=== PATIENT | male | born 1965 | race Caucasian/White ===

== ENCOUNTER 2021-07-28 10:51 | Inpatient (IN) | payer BC ==
[2021-07-28] MEDS ORDERED: ALBUTEROL HFA INHALER INHALATION STA (11:16)
[2021-07-28] MEDS ORDERED: ALBUTEROL HFA INHALER INHALATION PRN ×2 (11:16→13:50)
[2021-07-28] MEDS ORDERED: methylPREDNISolone SOD SUCCI 125 MG/2 ML VIAL IV STA (11:18)
--- NOTE | 2021-07-28 11:22 | ED ---
General Adult HPI - General Chief complaint: Shortness of Breath Stated complaint: JERRY Time Seen by Provider: 07/28/21 11:10 Source: patient, RN notes reviewed, old records reviewed Mode of arrival: ambulatory Limitations: no limitations - History of Present Illness Initial comments: Well-appearing 56-year-old male, alert and oriented 4, presents to the emergency room with complaints of shortness of breath worsening over the past 4- 5 days. He denies any fevers. He has not been vaccinated against coronavirus. He has not had any sick contacts. He states he does smoke about 4 cigarettes a day. History of COPD. He does use his Yemi daily and a rescue inhaler as needed. He used his rescue inhaler 4 times this morning with no relief. -: days(s) (5) Location: chest Severity scale (1-10): 0 Associated Symptoms: shortness of breath Treatments Prior to Arrival: other (albuterol) - Related Data Home Medications Medication Instructions Recorded Confirmed Albuterol Inhaler [Ventolin Hfa 2 puff INHALATION RT-Q4H PRN 07/28/21 07/28/21 Inhaler] Ascorbic Acid [Vitamin C] 500 mg PO DAILY 07/28/21 07/28/21 Cholecalciferol [Vitamin D3 (25 25 mcg PO DAILY 07/28/21 07/28/21 Mcg = 1000 Iu)] Umeclidinium Brm/Vilanterol Tr 1 puff INHALATION RT-DAILY 07/28/21 07/28/21 [Anoro Ellipta 62.5-25 Mcg INH] Zinc 50 mg PO DAILY 07/28/21 07/28/21 Allergies Allergy/AdvReac Type Severity Reaction Status Date / Time No Known Allergies Allergy Verified 07/28/21 11:51 Review of Systems ROS Statement: Those systems with pertinent positive or pertinent negative responses have been documented in the HPI. ROS Other: All systems not noted in ROS Statement are negative. Past Medical History Past Medical History: COPD Additional Past Medical History / Comment(s): emphysema History of Any Multi-Drug Resistant Organisms: None Reported Past Surgical History: No Surgical Hx Reported Past Psychological History: No Psychological Hx Reported Smoking Status: Current every day smoker Past Alcohol Use History: None Reported Past Drug Use History: None Reported General Exam Limitations: no limitations General appearance: alert, in distress (Dyspneic) Head exam: Present: atraumatic, normocephalic, normal inspection Eye exam: Present: normal appearance, EOMI. Absent: scleral icterus ENT exam: Present: normal exam, normal oropharynx, mucous membranes moist Neck exam: Present: normal inspection, full ROM. Absent: tenderness, meningismus, lymphadenopathy, thyromegaly Respiratory exam: Present: wheezes, accessory muscle use, decreased breath sounds (Bilaterally; decreased left side). Absent: rhonchi, stridor, chest wall tenderness Cardiovascular Exam: Present: tachycardia GI/Abdominal exam: Present: soft. Absent: distended, tenderness, guarding, rebound, rigid Extremities exam: Present: normal inspection, full ROM, normal capillary refill. Absent: tenderness, pedal edema, joint swelling, calf tenderness Back exam: Present: normal inspection. Absent: tenderness, CVA tenderness (R), CVA tenderness (L), rash noted Neurological exam: Present: alert, oriented X3 Psychiatric exam: Present: normal affect, normal mood Skin exam: Present: warm, dry, intact, normal color. Absent: rash, cyanosis, diaphoretic, petechiae, pallor Course Vital Signs 07/28/21 07/28/21 07/28/21 10:57 11:21 13:09 Temperature 99 F Pulse Rate 103 H 80 Respiratory 28 H 22 20 Rate Blood Pressure 173/106 O2 Sat by Pulse 92 L Oximetry 07/28/21 07/28/21 07/28/21 13:30 15:26 15:44 Temperature Pulse Rate 91 80 102 H Respiratory 20 20 Rate Blood Pressure 128/97 165/96 O2 Sat by Pulse 94 L 91 L Oximetry 07/28/21 15:58 Temperature Pulse Rate 92 Respiratory Rate Blood Pressure O2 Sat by Pulse Oximetry - Reevaluation(s) Reevaluation #1: 07/28/21 13:16 Patient continues to be dyspneic using sensory muscles to breathe. Covid test is negative. DuoNeb treatment was ordered. Awaiting CT report. Time: 13:16 Reevaluation #2: 07/28/21 16:23 Patient continues to have accessory muscle use and inspiratory and expiratory wheezes. Additional DuoNeb treatment ordered. Patient is admitted to the hospital. Time: 16:23 EKG Findings - EKG Results: EKG: sinus rhythm (Ventricular rate 96, ID interval 0.152, QRS 0.94, QTC 0.434; incomplete RBBB; no old EKG) Medical Decision Making - Medical Decision Making Pleasant 56-year-old male presents with complaints of shortness of breath worsening over the past 4-5 days. He denies any fevers. History of COPD. He does use his Yemi daily and a rescue inhaler as needed. He used his rescue inhaler 4 times this morning with no relief. White blood cell count 12.8 with a left shift. Chest x-ray is negative for any acute cardiopulmonary process. Troponin is negative. EKG shows normal sinus rhythm with RBBB. CT imaging of the chest shows no evidence of acute pulmonary embolism. There is moderate emphysematous change without pulmonary consolidation or groundglass opacities. Patient was started on antibiotics for COPD exacerbation. Upon reassessment he continues to use accessory muscles with inspiratory and expiratory wheezes. Oxygen saturation 90 with 94% on room air. Case discussed with Dr. Segundo. Patient will be admitted - Lab Data Result diagrams: 07/28/21 11:46 07/28/21 11:46 Lab Results 07/28/21 07/28/21 07/28/21 Range/Units 11:46 11:46 11:46 WBC 12.8 H (3.8-10.6) k/uL RBC 5.03 (4.30-5.90) m/uL Hgb 15.7 (13.0-17.5) gm/dL Hct 47.8 (39.0-53.0) % MCV 94.9 (80.0-100.0) fL MCH 31.1 (25.0-35.0) pg MCHC 32.8 (31.0-37.0) g/dL RDW 13.3 (11.5-15.5) % Plt Count 305 (150-450) k/uL MPV 7.5 Neutrophils % 81 % Lymphocytes % 10 % Monocytes % 5 % Eosinophils % 2 % Basophils % 0 % Neutrophils # 10.4 H (1.3-7.7) k/uL Lymphocytes # 1.2 (1.0-4.8) k/uL Monocytes # 0.7 (0-1.0) k/uL Eosinophils # 0.3 (0-0.7) k/uL Basophils # 0.0 (0-0.2) k/uL PT 9.6 (9.0-12.0) sec INR 0.9 (<1.2) APTT 24.0 (22.0-30.0) sec D-Dimer <0.17 (<0.60) mg/L FEU Sample Site ABG pH (7.35-7.45) ABG pCO2 (35-45) mmHg ABG pO2 (83-108) mmHg ABG HCO3 (21-25) mmol/L ABG Total CO2 (19-24) mmol/L ABG O2 Saturation (94-97) % ABG Base Excess mmol/L Richard Test FiO2 % Sodium 138 (137-145) mmol/L Potassium 4.4 (3.5-5.1) mmol/L Chloride 103 (98-107) mmol/L Carbon Dioxide 28 (22-30) mmol/L Anion Gap 7 mmol/L BUN 17 (9-20) mg/dL Creatinine 0.80 (0.66-1.25) mg/dL Est GFR (CKD-EPI)AfAm >90 (>60 ml/min/1.73 sqM) Est GFR (CKD-EPI)NonAf >90 (>60 ml/min/1.73 sqM) Glucose 126 H (74-99) mg/dL Plasma Lactic Acid Keith (0.7-2.0) mmol/L Calcium 9.2 (8.4-10.2) mg/dL Magnesium 2.1 (1.6-2.3) mg/dL Total Bilirubin 0.4 (0.2-1.3) mg/dL AST 25 (17-59) U/L ALT 20 (4-49) U/L Alkaline Phosphatase 72 (38-126) U/L Lactate Dehydrogenase 403 (313-618) U/L Troponin I (0.000-0.034) ng/mL C-Reactive Protein 0.5 (<1.0) mg/dL Total Protein 7.4 (6.3-8.2) g/dL Albumin 4.6 (3.5-5.0) g/dL Coronavirus (PCR) (Not Detectd) 07/28/21 07/28/21 07/28/21 Range/Units 11:46 11:46 11:46 WBC (3.8-10.6) k/uL RBC (4.30-5.90) m/uL Hgb (13.0-17.5) gm/dL Hct (39.0-53.0) % MCV (80.0-100.0) fL MCH (25.0-35.0) pg MCHC (31.0-37.0) g/dL RDW (11.5-15.5) % Plt Count (150-450) k/uL MPV Neutrophils % % Lymphocytes % % Monocytes % % Eosinophils % % Basophils % % Neutrophils # (1.3-7.7) k/uL Lymphocytes # (1.0-4.8) k/uL Monocytes # (0-1.0) k/uL Eosinophils # (0-0.7) k/uL Basophils # (0-0.2) k/uL PT (9.0-12.0) sec INR (<1.2) APTT (22.0-30.0) sec D-Dimer (<0.60) mg/L FEU Sample Site ABG pH (7.35-7.45) ABG pCO2 (35-45) mmHg ABG pO2 (83-108) mmHg ABG HCO3 (21-25) mmol/L ABG Total CO2 (19-24) mmol/L ABG O2 Saturation (94-97) % ABG Base Excess mmol/L Richard Test FiO2 % Sodium (137-145) mmol/L Potassium (3.5-5.1) mmol/L Chloride (98-107) mmol/L Carbon Dioxide (22-30) mmol/L Anion Gap mmol/L BUN (9-20) mg/dL Creatinine (0.66-1.25) mg/dL Est GFR (CKD-EPI)AfAm (>60 ml/min/1.73 sqM) Est GFR (CKD-EPI)NonAf (>60 ml/min/1.73 sqM) Glucose (74-99) mg/dL Plasma Lactic Acid Keith 0.9 (0.7-2.0) mmol/L Calcium (8.4-10.2) mg/dL Magnesium (1.6-2.3) mg/dL Total Bilirubin (0.2-1.3) mg/dL AST (17-59) U/L ALT (4-49) U/L Alkaline Phosphatase (38-126) U/L Lactate Dehydrogenase (313-618) U/L Troponin I <0.012 (0.000-0.034) ng/mL C-Reactive Protein (<1.0) mg/dL Total Protein (6.3-8.2) g/dL Albumin (3.5-5.0) g/dL Coronavirus (PCR) Not Detected (Not Detectd) 07/28/21 Range/Units 14:19 WBC (3.8-10.6) k/uL RBC (4.30-5.90) m/uL Hgb (13.0-17.5) gm/dL Hct (39.0-53.0) % MCV (80.0-100.0) fL MCH (25.0-35.0) pg MCHC (31.0-37.0) g/dL RDW (11.5-15.5) % Plt Count (150-450) k/uL MPV Neutrophils % % Lymphocytes % % Monocytes % % Eosinophils % % Basophils % % Neutrophils # (1.3-7.7) k/uL Lymphocytes # (1.0-4.8) k/uL Monocytes # (0-1.0) k/uL Eosinophils # (0-0.7) k/uL Basophils # (0-0.2) k/uL PT (9.0-12.0) sec INR (<1.2) APTT (22.0-30.0) sec D-Dimer (<0.60) mg/L FEU Sample Site r rad ABG pH 7.36 (7.35-7.45) ABG pCO2 51 H (35-45) mmHg ABG pO2 58 L* (83-108) mmHg ABG HCO3 29 H (21-25) mmol/L ABG Total CO2 31 H (19-24) mmol/L ABG O2 Saturation 90.5 L (94-97) % ABG Base Excess 3.7 mmol/L Richard Test Yes FiO2 21 % Sodium (137-145) mmol/L Potassium (3.5-5.1) mmol/L Chloride (98-107) mmol/L Carbon Dioxide (22-30) mmol/L Anion Gap mmol/L BUN (9-20) mg/dL Creatinine (0.66-1.25) mg/dL Est GFR (CKD-EPI)AfAm (>60 ml/min/1.73 sqM) Est GFR (CKD-EPI)NonAf (>60 ml/min/1.73 sqM) Glucose (74-99) mg/dL Plasma Lactic Acid Keith (0.7-2.0) mmol/L Calcium (8.4-10.2) mg/dL Magnesium (1.6-2.3) mg/dL Total Bilirubin (0.2-1.3) mg/dL AST (17-59) U/L ALT (4-49) U/L Alkaline Phosphatase (38-126) U/L Lactate Dehydrogenase (313-618) U/L Troponin I (0.000-0.034) ng/mL C-Reactive Protein (<1.0) mg/dL Total Protein (6.3-8.2) g/dL Albumin (3.5-5.0) g/dL Coronavirus (PCR) (Not Detectd) Critical Care Time Critical Care Time: Yes Total Critical Care Time: 34 (Patient given multiple albuterol treatments continues to have respiratory distress with accessory muscle use) Disposition Clinical Impression: COPD exacerbation Disposition: ADMITTED IP TO THIS HOSP Decision Date: 07/28/21 Decision Time: 13:47
[2021-07-28 11:52] LABS: Basophils % (A) 0 %; Eosinophils # (A) 0.3 k/uL (0-0.7); Eosinophils % (A) 2 %; HCT 47.8 % (39.0-53.0); HGB 15.7 gm/dL (13.0-17.5); Lymphocytes # (A) 1.2 k/uL (1.0-4.8); Lymphocytes % (A) 10 %; MCH 31.1 pg (25.0-35.0); MCHC 32.8 g/dL (31.0-37.0); MCV 94.9 fL (80.0-100.0); Mean Platelet Volume 7.5; Monocytes # (A) 0.7 k/uL (0-1.0); Monocytes % (A) 5 %; Neutrophils # (A) 10.4 k/uL (1.3-7.7); Neutrophils % (A) 81 %; Platelet Count 305 k/uL (150-450); RBC 5.03 m/uL (4.30-5.90); RDW 13.3 % (11.5-15.5); WBC 12.8 k/uL (3.8-10.6)
--- NOTE | 2021-07-28 11:59 | XR ---
EXAMINATION TYPE: XR chest 1V portable DATE OF EXAM: 07/28/2021 COMPARISON: Chest x-ray April 10, 2020 HISTORY: Difficulty in breathing. TECHNIQUE: Single frontal view of the chest is obtained. FINDINGS: There are chronic parenchymal changes bilaterally redemonstrated without suspicious new fo rakel air space opacity, pleural effusion, or pneumothorax seen. The cardiac silhouette size remains w ithin normal limits. Spurring in the lower thoracic spine is again seen. IMPRESSION: No acute process. No significant change from prior.
[2021-07-28 12:08] LABS: ALT 20 U/L (4-49); AST 25 U/L (17-59); African American GFR (CKD) >90 (>60 ml/min/1.73 sqM); Albumin 4.6 g/dL (3.5-5.0); Alkaline Phosphatase 72 U/L (38-126); Anion Gap 7 mmol/L; Blood Urea Nitrogen 17 mg/dL (9-20); C Reactive Protein 0.5 mg/dL (<1.0); Calcium 9.2 mg/dL (8.4-10.2); Carbon Dioxide 28 mmol/L (22-30); Chloride 103 mmol/L (98-107); Glucose 126 mg/dL (74-99); LDH 403 U/L (313-618); Magnesium 2.1 mg/dL (1.6-2.3); Non-African American GFR(CKD) >90 (>60 ml/min/1.73 sqM); Potassium 4.4 mmol/L (3.5-5.1); Sodium 138 mmol/L (137-145); Total Bilirubin 0.4 mg/dL (0.2-1.3); Total Protein 7.4 g/dL (6.3-8.2)
[2021-07-28 12:14] LABS: INR 0.9 (<1.2); Prothrombin Time 9.6 sec (9.0-12.0)
[2021-07-28] MEDS ORDERED: AZITHROMYCIN 500 MG in SODIUM CHLORIDE 0.9% 250 ML IVPB STA (12:31)
[2021-07-28] MEDS ORDERED: IPRATROPIUM-ALBUTEROL 3 ML NEB INHALATION STA ×3 (12:42→16:22)
--- NOTE | 2021-07-28 13:17 | CT ---
EXAMINATION TYPE: CT angio chest DATE OF EXAM: 07/28/2021 COMPARISON: Chest x-ray earlier today HISTORY: dyspnea, covid CT DLP: 284.4 mGycm. Automated Exposure Control for Dose Reduction was Utilized. CONTRAST: CTA scan of the thorax is performed with IV Contrast, patient injected with 100 mL of Isovue 370, pul monary embolism protocol. MIP Images are created on CT scanner and reviewed. FINDINGS: LUNGS: Moderate underlying emphysematous changes greatest in the upper lungs is redemonstrated. No s uspicious focal consolidation or groundglass opacities. There is no pleural effusion or pneumothorax seen. The tracheobronchial tree is patent. No suspicious MEDIASTINUM: There is satisfactory enhancement of the pulmonary artery and its branches, there is no CT evidence for pulmonary embolism. Satisfactory enhancement of the aorta without aneurysm or dissec tion. There are no greater than 1 cm hilar or mediastinal lymph nodes. No cardiomegaly or pericardi al effusion is seen. OTHER: [id number] multilevel spurring in the mid to lower thoracic spine is present. IMPRESSION: No CT evidence for acute pulmonary embolism. Moderate emphysematous change without acute pulmonary consolidation or groundglass opacities.
[2021-07-28] MEDS ORDERED: ACETAMINOPHEN TAB 325 MG TAB PO PRN (13:47)
[2021-07-28] MEDS ORDERED: IBUPROFEN 400 MG TAB PO PRN (13:47)
[2021-07-28] MEDS ORDERED: NALOXONE 0.4 MG/ML 1 ML VIAL IV PRN (13:47)
[2021-07-28 14:22] LABS: ABG Base Excess 3.7 mmol/L; ABG HCO3 29 mmol/L (21-25); ABG Oxygen Saturation 90.5 % (94-97); ABG PCO2 51 mmHg (35-45); ABG PH 7.36 (7.35-7.45); ABG TCO2 31 mmol/L (19-24); Allen Test Performed? Yes
[2021-07-28 14:24] LABS: ABG PO2 58 mmHg (83-108)
[2021-07-28] MEDS ORDERED: IPRATROPIUM-ALBUTEROL 3 ML NEB INHALATION PRN (16:34)
--- NOTE | 2021-07-28 16:39 | P.HPIM ---
History of Present Illness H&P Date: 07/28/21 Chief Complaint: shortness of breath Patient is a 56-year-old male with a past medical history of severe COPD and tobacco abuse who presents to the ED with worsening shortness of breath that started 5 days ago. Patient is also complaining of nasal congestion. Patient states that at baseline he is able to walk less than 400 feet from his house to the mailbox and back. He states that today he was short of breath with just standing up which prompted him to come to the ED. Patient states that he has cut down on smoking however still continues to smoke 4 packs per day. He states that for a while he was not using his rescue inhaler however for the past 5 days he's been using it more and more frequently and yesterday he had to use it about 12 times and it did not cause him any relief. In the ED patient received some breathing treatments and some steroids with mild improvement in his symptoms. However he continues to have significant shortness of breath and is using accessory muscles while at rest. I told nurse to place patient on BiPAP for his increased work of breathing and admit him to the stepdown unit.. Patient's ABG was reviewed and is consistent with chronic hypercapnic respiratory failure. Patient currently is satting in the 90s on room air. Patient's chest x-ray and CT chest were negative for any consolidations however did show findings cons istent with severe emphysema. Review of Systems 10 ROS reviewed and are negative except as noted in HPI Past Medical History Past Medical History: COPD Additional Past Medical History / Comment(s): emphysema History of Any Multi-Drug Resistant Organisms: None Reported Past Surgical History: No Surgical Hx Reported Past Psychological History: No Psychological Hx Reported Smoking Status: Current every day smoker Past Alcohol Use History: None Reported Past Drug Use History: None Reported Medications and Allergies Home Medications Medication Instructions Recorded Confirmed Type Albuterol Inhaler [Ventolin Hfa 2 puff INHALATION RT-Q4H PRN 07/28/21 07/28/21 History Inhaler] Ascorbic Acid [Vitamin C] 500 mg PO DAILY 07/28/21 07/28/21 History Cholecalciferol [Vitamin D3 (25 25 mcg PO DAILY 07/28/21 07/28/21 History Mcg = 1000 Iu)] Umeclidinium Brm/Vilanterol Tr 1 puff INHALATION RT-DAILY 07/28/21 07/28/21 History [Anoro Ellipta 62.5-25 Mcg INH] Zinc 50 mg PO DAILY 07/28/21 07/28/21 History Allergies Allergy/AdvReac Type Severity Reaction Status Date / Time No Known Allergies Allergy Verified 07/28/21 11:51 Physical Exam Osteopathic Statement: *. No significant issues noted on an osteopathic structural exam other than those noted in the History and Physical/Consult. Vitals: Vital Signs Temp Pulse Resp BP Pulse Ox 07/28/21 15:58 92 07/28/21 15:44 102 H 07/28/21 15:26 80 20 165/96 91 L 07/28/21 13:30 91 20 128/97 94 L 07/28/21 13:09 80 20 07/28/21 11:21 22 07/28/21 10:57 99 F 103 H 28 H 173/106 92 L Intake and Output 07/28/21 07/28/21 07/28/21 06:59 14:59 22:59 Other: Weight 71.668 kg General: [Alert and oriented, in severe respiratory distress, cachectic appearing]. Eye: [PERRL, EOMI, normal conjunctiva]. HENT: [Normocephalic, clear tympanic membranes, normal hearing, moist oral mucosa, no scleral icterus, no sinus tenderness]. Neck: [Supple, non-tender, no carotid bruits, no JVD, no lymphadenopathy]. Lungs: [Diminished breath sounds bilaterally]. Heart: [Normal rate, regular rhythm, no murmur, gallop or edema]. Abdomen: [Soft, non-tender, non-distended, normal bowel sounds, no masses]. Musculoskeletal: [Normal range of motion and strength, no tenderness or swelling]. Skin: [Skin is warm, dry and pink, no rashes or lesions]. Neurologic: [Awake, alert, and oriented X3, CN II-XII intact]. Psychiatric: [Anxious]. Results CBC & Chem 7: 07/28/21 11:46 07/28/21 11:46 Labs: Abnormal Lab Results - Last 24 Hours (Table) 07/28/21 07/28/21 07/28/21 Range/Units 11:46 11:46 14:19 WBC 12.8 H (3.8-10.6) k/uL Neutrophils # 10.4 H (1.3-7.7) k/uL ABG pCO2 51 H (35-45) mmHg ABG pO2 58 L* (83-108) mmHg ABG HCO3 29 H (21-25) mmol/L ABG Total CO2 31 H (19-24) mmol/L ABG O2 Saturation 90.5 L (94-97) % Glucose 126 H (74-99) mg/dL Assessment and Plan Assessment: #Severe COPD with exacerbation and pulmonary cachexia #URI symptoms -IV Solu-Medrol, azithromycin, DuoNeb -Consult pulmonology -We'll place patient on BiPAP for difficulty in breathing -ABG noted -COVID-19 negative -We'll start Flonase #sinus tachycarida 2/2 shortness of breath -this is a physiologic response so no need to treat #Tobacco abuse -I discussed smoking cessation with the patient -Nicotine patch I discussed patient's CODE STATUS. Daughter and son were in the room. Patient states that he does not want intubation or CPR. Patient is high risk for decompensation CODE STATUS: DNR/DNI DVT prophylaxis: Subcu heparin Anticipated length of stay > than [address]: home A total of 75 minutes was spent on the care of this complex patient more than 50% of the time was spent in counseling and care coordination.
[2021-07-28] MEDS: IPRATROPIUM-ALBUTEROL 3 ML NEB INHALATION SCH (20:46)
[2021-07-28] MEDS: NICOTINE 21MG/24HR PATCH TRANSDERM SCH (21:04)
[2021-07-28 21:05] LABS: Glucose,Whole Blood 158 mg/dL (75-99)
[2021-07-28] MEDS: INSULIN ASPART (NovoLOG) 100 UNIT/ML VIAL SQ SCH ×2 (21:09→22:55)
[2021-07-28] MEDS: methylPREDNISolone SOD SUCCI 125 MG/2 ML VIAL IV SCH ×2 (21:10→23:26)
[2021-07-29] MEDS: methylPREDNISolone SOD SUCCI 125 MG/2 ML VIAL IV SCH ×2 (05:25→13:08)
[2021-07-29] MEDS ORDERED: IPRATROPIUM 0.5 MG/2.5 ML NEBU INHALATION SCH (08:00)
[2021-07-29] MEDS ORDERED: FORMOTEROL FUMARATE 20 MCG/2 ML NEBU INHALATION SCH (08:00)
[2021-07-29 08:24] LABS: Glucose,Whole Blood 127 mg/dL (75-99)
[2021-07-29] MEDS: INSULIN ASPART (NovoLOG) 100 UNIT/ML VIAL SQ SCH ×4 (08:25→20:41)
[2021-07-29] MEDS: IPRATROPIUM-ALBUTEROL 3 ML NEB INHALATION SCH ×4 (08:25→18:54)
[2021-07-29] MEDS: AZITHROMYCIN 500 MG TAB PO SCH (09:03)
[2021-07-29] MEDS: ZINC SULFATE 220 MG CAP PO SCH (09:03)
[2021-07-29] MEDS: CHOLECALCIFEROL 25 MCG (1000 IU) TABLET PO SCH (09:03)
[2021-07-29] MEDS: ASCORBIC ACID 500 MG TAB PO SCH (09:03)
[2021-07-29] MEDS: NICOTINE 21MG/24HR PATCH TRANSDERM SCH (09:05)
[2021-07-29] MEDS: FLUTICASONE 50MCG/SPRAY NASAL 16GM EA NOSTRIL SCH (11:28)
--- NOTE | 2021-07-29 11:28 | P.CNPUL ---
History of Present Illness Consult date: 07/29/21 Requesting physician: Tiffanie Gonzales Reason for consult: dyspnea, cough, COPD, hypoxemia Chief complaint: Shortness of breath. History of present illness: Pulmonary consult dated 07/29/2021. 56-year-old male, seen in consultation today. The patient is seen in room 522. He came to the emergency department yesterday, and was seen by one of the physician's assistants. He apparently had developed severe shortness of breath, and for that reason, was evaluated in the emergency room, and admitted with a diagnosis of COPD exacerbation. I see this patient in the clinic. He has a history of ongoing tobacco use and nicotine addiction, and has very severe COPD with an FEV1 that is 26% of predicted. He has stage IV COPD. Currently, he is on a combination long-acting muscarinic antagonist and long-acting beta agonist preparation, as well as an albuterol inhaler. As mentioned above, he does continue to smoke. He comes into the hospital complaining of shortness of breath, tightness, wheezing, and cough. The patient's chest x-ray was consistent with COPD. The patient CT angiogram was negative for pulmonary embolism. He did test negative for coronavirus infection. His only past medical history is COPD. He states that he does not have a primary care physician. White count 12.8, hemoglobin 15.7, hematocrit 47.8, platelet count 305,000. Sodium 138, potassium 4.4, chlorides 103, CO2 28, anion gap 7, BUN 17, and creatinine 0.8. Blood gases show pO2 of 58, pCO2 of 51, and pH is 7.36. This was done on room air yesterday. Review of Systems REVIEW OF SYSTEMS: CONSTITUTIONAL: [Negative.] NEUROLOGIC: [ Negative.] HEENT: [ Negative.] CARDIAC: [Negative.] PULMONARY: Shortness of breath, cough, wheezing, chest tightness. GI: [Negative.] : [Negative.] RHEUMATOLOGIC: [ Negative.] IMMUNOLOGIC: [ Negative.] ENDOCRINE: [Negative. ] DERMATOLOGIC: [Negative.] Past Medical History Past Medical History: COPD Additional Past Medical History / Comment(s): emphysema History of Any Multi-Drug Resistant Organisms: None Reported Past Surgical History: No Surgical Hx Reported Past Psychological History: No Psychological Hx Reported Smoking Status: Current some day smoker Past Alcohol Use History: None Reported Past Drug Use History: None Reported Medications and Allergies Home Medications Medication Instructions Recorded Confirmed Type Albuterol Inhaler [Ventolin Hfa 2 puff INHALATION RT-Q4H PRN 07/28/21 07/28/21 History Inhaler] Ascorbic Acid [Vitamin C] 500 mg PO DAILY 07/28/21 07/28/21 History Cholecalciferol [Vitamin D3 (25 25 mcg PO DAILY 07/28/21 07/28/21 History Mcg = 1000 Iu)] Umeclidinium Brm/Vilanterol Tr 1 puff INHALATION RT-DAILY 07/28/21 07/28/21 History [Anoro Ellipta 62.5-25 Mcg INH] Zinc 50 mg PO DAILY 07/28/21 07/28/21 History Allergies Allergy/AdvReac Type Severity Reaction Status Date / Time No Known Allergies Allergy Verified 07/28/21 11:51 Physical Exam Osteopathic Statement: *. No significant issues noted on an osteopathic structural exam other than those noted in the History and Physical/Consult. Vitals: Vital Signs Temp Pulse Pulse Resp BP BP Pulse Ox 07/29/21 09:12 86 16 07/29/21 08:39 80 07/29/21 08:31 75 97 07/29/21 08:03 98.1 F 86 16 118/63 92 L 07/29/21 04:20 98.0 F 77 16 124/68 95 07/28/21 22:14 97.8 F 81 16 119/79 98 07/28/21 20:57 96 07/28/21 20:48 82 07/28/21 15:58 92 07/28/21 15:44 102 H 07/28/21 15:26 80 20 165/96 91 L 07/28/21 13:30 91 20 128/97 94 L 07/28/21 13:09 80 20 07/28/21 11:21 22 Intake and Output 07/28/21 07/29/21 07/29/21 22:59 06:59 14:59 Intake Total 770 Output Total 400 Balance 370 Intake: Oral 770 Output: Urine 400 Other: Voiding Method Toilet Toilet Urinal Urinal # Voids 1 Weight 71.668 kg No acute distress, oriented 3. Currently on room air. HEENT examination is grossly unremarkable. Neck supple. Full range of motion. No adenopathy thyromegaly or neck vein distention. Cardiovascular examination reveals regular rhythm rate. S1-S2 normal. No S3 or S4. No discernible murmur noted. Heart rate 80 bpm. Lungs reveal diminished bilateral breath sounds. Scattered mild wheezes. No rhonchi. No crackles. Breath sounds equal bilaterally. Abdomen soft bowel sounds are heard. No masses or tenderness. Extremities are intact. No cyanosis clubbing or edema. Skin is without rash or lesion. Neurologic examination is brief but nonfocal. Results - Laboratory Findings CBC and BMP: 07/28/21 11:46 07/28/21 11:46 ABG ABG pH 7.36 (7.35-7.45) 07/28/21 14:19 ABG pCO2 51 mmHg (35-45) H 07/28/21 14:19 ABG pO2 58 mmHg (83-108) L* 07/28/21 14:19 ABG O2 Saturation 90.5 % (94-97) L 07/28/21 14:19 PT/INR, D-dimer PT 9.6 sec (9.0-12.0) 07/28/21 11:46 INR 0.9 (<1.2) 07/28/21 11:46 D-Dimer <0.17 mg/L FEU (<0.60) 07/28/21 11:46 Abnormal lab findings: Abnormal Labs 07/28/21 07/28/21 07/28/21 11:46 11:46 14:19 WBC 12.8 H Neutrophils # 10.4 H ABG pCO2 51 H ABG pO2 58 L* ABG HCO3 29 H ABG Total CO2 31 H ABG O2 Saturation 90.5 L Glucose 126 H POC Glucose (mg/dL) Ferritin 392.0 H 07/28/21 07/29/21 21:00 08:22 WBC Neutrophils # ABG pCO2 ABG pO2 ABG HCO3 ABG Total CO2 ABG O2 Saturation Glucose POC Glucose (mg/dL) 158 H 127 H Ferritin Assessment and Plan Assessment: Acute exacerbation of COPD. Ongoing tobacco use and nicotine addiction. Very severe/stage IV COPD, with an FEV1 that is 26% of predicted. Plan: Plan dated 07/29/2021. The patient's doing much better today. In my opinion, the patient could be discharged home on his usual home medications, and prednisone at 50 mg a day. I will see him in the office next week. He can stay on the 50 mg until I see him in the office, at which time I'll start tapering his medication. I counseled him on the importance of smoking cessation. The patient's COPD is quite severe, with an FEV1 percent that is 26. Prognosis is guarded. Time with Patient: Greater than 30
[2021-07-29 13:34] LABS: Glucose,Whole Blood 163 mg/dL (75-99)
--- NOTE | 2021-07-29 13:45 | P.PN ---
Subjective Progress Note Date: 07/29/21 CC: shortness of breath Patient stated that he is doing much better this morning. Patient states that he would've the BiPAP for almost 7 hours yesterday and he states that it seemed to have helped with his breathing. Patient is morning is satting well on room air. He was getting breathing treatments. 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 spontaneously Psych - Calm and cooperative - Labs CBC & Chem 7: 07/28/21 11:46 07/28/21 11:46 Labs: Abnormal Lab Results - Last 24 Hours (Table) 07/28/21 07/28/21 07/28/21 Range/Units 11:46 14:19 21:00 ABG pCO2 51 H (35-45) mmHg ABG pO2 58 L* (83-108) mmHg ABG HCO3 29 H (21-25) mmol/L ABG Total CO2 31 H (19-24) mmol/L ABG O2 Saturation 90.5 L (94-97) % POC Glucose (mg/dL) 158 H (75-99) mg/dL Ferritin 392.0 H (22.0-322.0) ng/mL 07/29/21 07/29/21 Range/Units 08:22 13:14 ABG pCO2 (35-45) mmHg ABG pO2 (83-108) mmHg ABG HCO3 (21-25) mmol/L ABG Total CO2 (19-24) mmol/L ABG O2 Saturation (94-97) % POC Glucose (mg/dL) 127 H 163 H (75-99) mg/dL Ferritin (22.0-322.0) ng/mL Assessment and Plan Assessment: #Severe COPD with exacerbation and pulmonary cachexia #URI symptoms -IV Solu-Medrol -> wean down, azithromycin, DuoNeb -Consult pulmonology -Patient currently satting well on room air -ABG noted -COVID-19 negative -We'll start Flonase -Per pulmonology okay for discharge on prednisone 50 mg daily and can follow-up in his office in one week where his toes will be tapered down. -Since patient failed with albuterol MDI I will write him a prescription for nebulizer treatment.. #sinus tachycarida 2/2 shortness of breath -this is a physiologic response so no need to treat #Tobacco abuse -I discussed smoking cessation with the patient -Nicotine patch I discussed patient's CODE STATUS. Daughter and son were in the room. Patient states that he does not want intubation or CPR. Patient is high risk for decompensation CODE STATUS: DNR/DNI DVT prophylaxis: Subcu heparin Anticipated length of stay: Discharge in next 24 hours his symptoms continued to improve Anticipated discharge place: home
[2021-07-29 17:14] LABS: Glucose,Whole Blood 147 mg/dL (75-99)
[2021-07-29 20:14] LABS: Glucose,Whole Blood 137 mg/dL (75-99)
[2021-07-29] MEDS: methylPREDNISolone SOD SUCCI 40 MG/ML 1 ML VIAL IV SCH (20:42)
[2021-07-30 07:09] LABS: Glucose,Whole Blood 111 mg/dL (75-99)
[2021-07-30 07:34] VITALS: BP 110/67; RESP 12; TEMP 98.2
[2021-07-30] MEDS: INSULIN ASPART (NovoLOG) 100 UNIT/ML VIAL SQ SCH (08:03)
[2021-07-30] MEDS: IPRATROPIUM-ALBUTEROL 3 ML NEB INHALATION SCH (08:07)
[2021-07-30 08:17] VITALS: PULSE 82
[2021-07-30] MEDS: ZINC SULFATE 220 MG CAP PO SCH (08:24)
[2021-07-30] MEDS: AZITHROMYCIN 500 MG TAB PO SCH (08:24)
[2021-07-30] MEDS: CHOLECALCIFEROL 25 MCG (1000 IU) TABLET PO SCH (08:24)
[2021-07-30] MEDS: NICOTINE 21MG/24HR PATCH TRANSDERM SCH (08:25)
[2021-07-30] MEDS: ASCORBIC ACID 500 MG TAB PO SCH (08:25)
[2021-07-30] MEDS: methylPREDNISolone SOD SUCCI 40 MG/ML 1 ML VIAL IV SCH (08:25)
[2021-07-30] MEDS: FLUTICASONE 50MCG/SPRAY NASAL 16GM EA NOSTRIL SCH (08:27)
[2021-07-30 11:26] LABS: Glucose,Whole Blood 117 mg/dL (75-99)
--- NOTE | 2021-07-30 12:30 | P.PN ---
Subjective Progress Note Date: 07/30/21 Principal diagnosis: Shortness of breath. Pulmonary consult dated 07/29/2021. 56-year-old male, seen in consultation today. The patient is seen in room 522. He came to the emergency department yesterday, and was seen by one of the physician's assistants. He apparently had developed severe shortness of breath, and for that reason, was evaluated in the emergency room, and admitted with a diagnosis of COPD exacerbation. I see this patient in the clinic. He has a history of ongoing tobacco use and nicotine addiction, and has very severe COPD with an FEV1 that is 26% of predicted. He has stage IV COPD. Currently, he is on a combination long-acting muscarinic antagonist and long-acting beta agonist preparation, as well as an albuterol inhaler. As mentioned above, he does continue to smoke. He comes into the hospital complaining of shortness of breath, tightness, wheezing, and cough. The patient's chest x-ray was consistent with COPD. The patient CT angiogram was negative for pulmonary embolism. He did test negative for coronavirus infection. His only past medical history is COPD. He states that he does not have a primary care physician. White count 12.8, hemoglobin 15.7, hematocrit 47.8, platelet count 305,000. Sodium 138, potassium 4.4, chlorides 103, CO2 28, anion gap 7, BUN 17, and creatinine 0.8. Blood gases show pO2 of 58, pCO2 of 51, and pH is 7.36. This was done on room air yesterday. Progress note dated 07/30/2021. The patient was seen yesterday in consultation. The patient does have severe COPD with an FEV1 that is 26% of predicted. He was again seen in room 522. The patient could've been discharged from the hospital yesterday. For some unclear reasons, the primary service decided to keep the patient in the hospital for 1 day more. I did recommend discharge with prednisone and I gave a dose. The patient does have a follow-up with me next week. I've counseled the patient extensively about the importance of smoking cessation. No new laboratory data to report. Objective - Vital Signs Vital signs: Vital Signs Temp 98.2 F 07/30/21 07:05 Pulse 82 07/30/21 08:58 Resp 12 07/30/21 08:58 BP 110/67 07/30/21 07:05 Pulse Ox 94 L 07/30/21 07:05 Intake & Output 07/29/21 07/30/21 07/30/21 18:59 06:59 18:59 Other: Voiding Method Toilet Toilet Toilet Urinal Urinal # Voids 4 3 - Exam No acute distress, oriented 3. Currently on room air. Saturations are 95-96%. HEENT examination is grossly unremarkable. Neck supple. Full range of motion. No adenopathy thyromegaly or neck vein distention. Cardiovascular examination reveals regular rhythm rate. S1-S2 normal. No S3 or S4. No discernible murmur noted. Heart rate 82 bpm. Lungs reveal diminished bilateral breath sounds. Scattered mild wheezes. No rhonchi. No crackles. Breath sounds equal bilaterally. Abdomen soft bowel sounds are heard. No masses or tenderness. Extremities are intact. No cyanosis clubbing or edema. Skin is without rash or lesion. - Labs CBC & Chem 7: 07/28/21 11:46 07/28/21 11:46 Labs: Abnormal Lab Results - Last 24 Hours (Table) 07/29/21 07/29/21 07/29/21 Range/Units 13:14 17:06 20:12 POC Glucose (mg/dL) 163 H 147 H 137 H (75-99) mg/dL 07/30/21 07/30/21 Range/Units 07:03 11:24 POC Glucose (mg/dL) 111 H 117 H (75-99) mg/dL Microbiology - Last 24 Hours (Table) 07/28/21 11:46 Blood Culture - Preliminary Blood No Growth after 24 hours 07/28/21 11:46 Blood Culture - Preliminary Blood No Growth after 24 hours Assessment and Plan Assessment: Acute exacerbation of COPD. Ongoing tobacco use and nicotine addiction. Very severe/stage IV COPD, with an FEV1 that is 26% of predicted. Plan: Plan dated 07/29/2021. The patient's doing much better today. In my opinion, the patient could be discharged home on his usual home medications, and prednisone at 50 mg a day. I will see him in the office next week. He can stay on the 50 mg until I see him in the office, at which time I'll start tapering his medication. I counseled him on the importance of smoking cessation. The patient's COPD is quite severe, with an FEV1 percent that is 26. Prognosis is guarded. Plan dated 07/30/2021. The patient can be discharged home on prednisone. He is on appropriate medications including short acting beta agonist, a long-acting beta agonist, and a long-acting muscarinic antagonist. The patient has an appointment to see me in the office next week. I may add an additional medication such as a inhaled corticosteroid. Another option would be to give him Trelegy, which has a long- acting beta agonist, long-acting muscarinic antagonist, and inhaled corticosteroid all in one inhaler, at 1 puff once a day. It is expensive. I'm not sure if his insurance will cover it. It would make his life much simpler. Time with Patient: Less than 30
--- NOTE | 2021-07-30 12:37 | P.DS ---
Providers Date of admission: 07/28/21 14:36 Expected date of discharge: 07/30/21 Attending physician: Tiffanie Gonzales MD Consults: 07/28/21 13:48 Consult Physician Routine Consulting Provider: Fred Grant Consult Reason/Comments: copd Do you want consulting provider notified?: Already Contacted Primary care physician: Fred Grant [facility] Course: Discharge Diagnosis: Severe COPD exacerbation with pulmonary cachexia URI symptoms Sinus tachycardia Tobacco abuse Hospital Course: Patient is a 56-year-old male with a past medical history of severe COPD and tobacco abuse who presents to the ED with shortness of breath. Patient was found to have COPD exacerbation. In the ED patient was having a difficult time breathing where he was using accessory muscles. Patient had to be placed on BiPAP. Patient also started on breathing treatments steroids and azithromycin. After a prolonged period on the BiPAP patient's breathing did improve significantly. At the time of discharge patient was satting well on room air and also said that he was close to his baseline. Patient was seen by pulmonology who recommended to discharge the per patient on prednisone 50 mg until seen in the office next week where they will taper down the steroids. Patient was counseled on smoking cessation. Patient shows willingness to quit smoking. 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 Patient Condition at Discharge: Poor Plan - Discharge Summary New Discharge Prescriptions: New Ipratropium-Albuterol Nebulize [Duoneb 0.5 mg-3 mg/3 ml Soln] 3 ml INHALATION RT-QID PRN 30 Days #100 ml PRN Reason: Shortness Of Breath Or Wheezing Nicotine 21Mg/24Hr Patch [Habitrol] 1 patch TRANSDERM DAILY #7 patch predniSONE 50 mg PO DAILY #7 tab Azithromycin [Zithromax] 500 mg PO DAILY 2 Days #2 tab Continue Cholecalciferol [Vitamin D3 (25 Mcg = 1000 Iu)] 25 mcg PO DAILY Albuterol Inhaler [Ventolin Hfa Inhaler] 2 puff INHALATION RT-Q4H PRN PRN Reason: Shortness Of Breath Zinc 50 mg PO DAILY Umeclidinium Brm/Vilanterol Tr [Anoro Ellipta 62.5-25 Mcg INH] 1 puff INHALATION RT-DAILY Ascorbic Acid [Vitamin C] 500 mg PO DAILY Discharge Medication List Albuterol Inhaler [Ventolin Hfa Inhaler] 2 puff INHALATION RT-Q4H PRN 07/28/21 [History] Ascorbic Acid [Vitamin C] 500 mg PO DAILY 07/28/21 [History] Cholecalciferol [Vitamin D3 (25 Mcg = 1000 Iu)] 25 mcg PO DAILY 07/28/21 [History] Umeclidinium Brm/Vilanterol Tr [Anoro Ellipta 62.5-25 Mcg INH] 1 puff INHALATION RT-DAILY 07/28/21 [History] Zinc 50 mg PO DAILY 07/28/21 [History] Azithromycin [Zithromax] 500 mg PO DAILY 2 Days #2 tab 07/30/21 [Rx] Ipratropium-Albuterol Nebulize [Duoneb 0.5 mg-3 mg/3 ml Soln] 3 ml INHALATION RT-QID PRN 30 Days #100 ml 07/30/21 [Rx] Nicotine 21Mg/24Hr Patch [Habitrol] 1 patch TRANSDERM DAILY #7 patch 07/30/21 [Rx] predniSONE 50 mg PO DAILY #7 tab 07/30/21 [Rx] Follow up Appointment(s)/Referral(s): Brad Jules MD [STAFF PHYSICIAN] - 08/18/21 12:40 pm Fred Grant DO [Primary Care Provider] - 08/05/21 9:30 am Patient Instructions/Handouts: How to Stop Smoking (GEN), Cigarette Smoking and Your Health (GEN), COPD (Chronic Obstructive Pulmonary Disease) (DC) Activity/Diet/Wound Care/Special Instructions: Stop Smoking Discharge Disposition: HOME SELF-CARE
== END 2021-07-30 13:32 | disposition home or self-care (01) | DRG 191 ==
LOC: EC 10:51 → 5NMEDONC 14:36
PROVIDERS: ADMIT Internal Medicine; ATTEND Internal Medicine
DX: J43.9 Emphysema, unspecified (principal); J96.12 Chronic respiratory failure with hypercapnia; J96.11 Chronic respiratory failure with hypoxia; R64 Cachexia; F17.210 Nicotine dependence, cigarettes, uncomplicated; I45.10 Unspecified right bundle-branch block; Z68.22 Body mass index [BMI] 22.0-22.9, adult; Z20.822 Contact with and (suspected) exposure to COVID-19; Z66 Do not resuscitate; Z71.6 Tobacco abuse counseling; R00.0 Tachycardia, unspecified
CPT/HCPCS: 36415; 36600; 71045; 71275; 80053; 82728; 82805; 83605; 83615; 83735; 84145; 84484; 85025; 85379; 85610; 85730; 86140; 87040; 87635; 93005; 94640; 94660; 94760; 96374; 99291

== ENCOUNTER 2023-06-18 13:51 | Emergency (ER) | payer BC, MEDICARE ==
[2023-06-18] MEDS ORDERED: IPRATROPIUM-ALBUTEROL 3 ML NEB INHALATION STA ×3 (14:25→16:38)
[2023-06-18] MEDS ORDERED: SODIUM CHLORIDE 0.9% 500 ML 500 ML IV STA (14:25)
[2023-06-18] MEDS ORDERED: methylPREDNISolone SOD SUCCI 125 MG/2 ML VIAL IV STA (14:30)
[2023-06-18 14:57] LABS: Basophils # (A) 0.1 k/uL (0-0.2); Basophils % (A) 1 %; Eosinophils # (A) 0.6 k/uL (0-0.7); Eosinophils % (A) 6 %; HCT 48.8 % (39.0-53.0); HGB 16.1 gm/dL (13.0-17.5); Lymphocytes # (A) 2.1 k/uL (1.0-4.8); Lymphocytes % (A) 19 %; MCH 30.5 pg (25.0-35.0); MCV 92.5 fL (80.0-100.0); Mean Platelet Volume 7.9; Monocytes # (A) 0.8 k/uL (0-1.0); Monocytes % (A) 7 %; Neutrophils # (A) 7.1 k/uL (1.3-7.7); Neutrophils % (A) 65 %; Platelet Count 291 k/uL (150-450); RBC 5.28 m/uL (4.30-5.90); RDW 13.6 % (11.5-15.5); WBC 10.8 k/uL (3.8-10.6)
[2023-06-18 15:05] LABS: INR 0.9 (<1.2); Partial Thromboplastin Time 26.4 sec (22.0-30.0); Prothrombin Time 9.7 sec (10.0-12.5)
[2023-06-18 15:08] LABS: ALT 24 U/L (4-49); AST 30 U/L (17-59); African American GFR (CKD) >90 (>60 ml/min/1.73 sqM); Albumin 4.6 g/dL (3.5-5.0); Alkaline Phosphatase 70 U/L (38-126); Anion Gap 9 mmol/L; Blood Urea Nitrogen 12 mg/dL (9-20); Calcium 9.6 mg/dL (8.4-10.2); Carbon Dioxide 29 mmol/L (22-30); Chloride 100 mmol/L (98-107); Glucose 98 mg/dL (74-99); Magnesium 2.2 mg/dL (1.6-2.3); Non-African American GFR(CKD) >90 (>60 ml/min/1.73 sqM); Sodium 138 mmol/L (137-145); Total Bilirubin 0.5 mg/dL (0.2-1.3); Total Protein 7.7 g/dL (6.3-8.2)
[2023-06-18 15:16] LABS: NT-Pro-B-Type Natriuretic Pept 108 pg/mL
--- NOTE | 2023-06-18 15:32 | ED ---
SOB HPI - General Chief Complaint: Shortness of Breath Stated Complaint: JERRY Time Seen by Provider: 06/18/23 14:25 Source: patient, RN notes reviewed, old records reviewed Mode of arrival: ambulatory Limitations: no limitations - History of Present Illness Initial Comments: This is a 58-year-old male to the emergency department for evaluation today. Vinh glaser has had only severe shortness of breath cough congestion and overall not feeling well. Patient has no fevers but shortness of breath is significantly increased and been getting worse. Patient was debrided she was at home with no help, patient does have COPD and emphysema with persistent cough, patient does continue to smoke. MD Complaint: shortness of breath, cough, anxiety -: days(s) Radiation: back Severity: moderate Severity scale (1-10): 4 Consistency: intermittent Known History Of: COPD, asthma Context: recent URI, recent illness Associated Symptoms: cough, sputum production Treatments Prior to Arrival: none - Related Data Home Medications Medication Instructions Recorded Confirmed Albuterol Inhaler [Ventolin Hfa 2 puff INHALATION RT-Q4H PRN 07/28/21 07/28/21 Inhaler] Ascorbic Acid [Vitamin C] 500 mg PO DAILY 07/28/21 07/28/21 Cholecalciferol [Vitamin D3 (25 25 mcg PO DAILY 07/28/21 07/28/21 Mcg = 1000 Iu)] Umeclidinium Brm/Vilanterol Tr 1 puff INHALATION RT-DAILY 07/28/21 07/28/21 [Anoro Ellipta 62.5-25 Mcg INH] Zinc 50 mg PO DAILY 07/28/21 07/28/21 Previous Rx's Medication Instructions Recorded Azithromycin [Zithromax] 500 mg PO DAILY 2 Days #2 tab 07/30/21 Ipratropium-Albuterol Nebulize 3 ml INHALATION RT-QID PRN 30 Days 07/30/21 [Duoneb 0.5 mg-3 mg/3 ml Soln] #100 ml Nicotine 21Mg/24Hr Patch [Habitrol] 1 patch TRANSDERM DAILY #7 patch 07/30/21 predniSONE 50 mg PO DAILY #7 tab 07/30/21 Azithromycin [Zithromax] 500 mg PO DAILY #5 tab 06/18/23 Benzonatate [Tessalon Perles] 100 mg PO TID PRN #15 capsule 06/18/23 predniSONE 50 mg PO DAILY #5 tab 06/18/23 Allergies Allergy/AdvReac Type Severity Reaction Status Date / Time No Known Allergies Allergy Verified 06/18/23 14:13 Review of Systems ROS Statement: Those systems with pertinent positive or pertinent negative responses have been documented in the HPI. ROS Other: All systems not noted in ROS Statement are negative. Past Medical History Past Medical History: COPD Additional Past Medical History / Comment(s): emphysema History of Any Multi-Drug Resistant Organisms: None Reported Past Surgical History: No Surgical Hx Reported Past Psychological History: No Psychological Hx Reported Smoking Status: Current every day smoker Past Alcohol Use History: Occasional Past Drug Use History: None Reported General Exam Limitations: no limitations General appearance: alert, in no apparent distress Head exam: Present: atraumatic, normocephalic, normal inspection Eye exam: Present: normal appearance, PERRL, EOMI. Absent: scleral icterus, conjunctival injection, periorbital swelling ENT exam: Present: normal exam, mucous membranes moist Neck exam: Present: normal inspection. Absent: tenderness, meningismus, lymphadenopathy Respiratory exam: Present: normal lung sounds bilaterally. Absent: respiratory distress, wheezes, rales, rhonchi, stridor Cardiovascular Exam: Present: regular rate, normal rhythm, normal heart sounds. Absent: systolic murmur, diastolic murmur, rubs, gallop, clicks GI/Abdominal exam: Present: soft, normal bowel sounds. Absent: distended, tenderness, guarding, rebound, rigid Extremities exam: Present: normal inspection, full ROM, normal capillary refill. Absent: tenderness, pedal edema, joint swelling, calf tenderness Back exam: Present: normal inspection Neurological exam: Present: alert, oriented X3, CN II-XII intact Psychiatric exam: Present: normal affect, normal mood Skin exam: Present: warm, dry, intact, normal color. Absent: rash Course Vital Signs 06/18/23 06/18/23 06/18/23 14:11 15:16 15:35 Temperature 98.1 F Pulse Rate 77 71 72 Respiratory 20 Rate Blood Pressure 133/88 O2 Sat by Pulse 95 Oximetry 06/18/23 06/18/23 06/18/23 17:52 18:00 18:02 Temperature 98.7 F Pulse Rate 85 84 84 Respiratory 16 Rate Blood Pressure 126/87 O2 Sat by Pulse 97 Oximetry 06/18/23 19:08 Temperature 98.7 F Pulse Rate 70 Respiratory 16 Rate Blood Pressure 104/58 O2 Sat by Pulse 100 Oximetry - Reevaluation(s) Reevaluation #1: 06/18/23 18:12 Record is reviewed Reevaluation #2: 06/18/23 18:13 This is breathing is dramatically improved Reevaluation #3: 06/18/23 18:13 Patient informed results and questions answered Reevaluation #4: 06/18/23 18:13 Was pt. sent in by a medical professional or institution ([facility], [facility], urgent care, hospital, or [facility]...) When possible be specific @ -no Did you speak to anyone other than the patient for history (EMS, parent, family, police, friend...)? What history was obtained from this source @ -no Did you review nursing and triage notes (agree or disagree)? Why? @ -agree Are old charts reviewed (outside hosp., previous admission, EMS record, old EKG, old radiological studies, urgent care reports/EKG's, [facility] records)? Report findings @ -yes Differential Diagnosis (chest pain, altered mental status, abdominal pain women, abdominal pain men, vaginal bleeding, weakness, fever, dyspnea, syncope, headache, dizziness, GI bleed, back pain, seizure, CVA, palpatations, mental health, musculoskeletal)? @ -prior EKG interpreted by me (3pts min.). @ -yes X-rays interpreted by me (1pt min.). @ -yes positive for pneumonia CT interpreted by me (1pt min.). @ -no U/S interpreted by me (1pt. min.). @ -no What testing was considered but not performed or refused? (CT, X-rays, U/S, labs)? Why? @ -none What meds were considered but not given or refused? Why? @ -none Did you discuss the management of the patient with other professionals (professionals i.e. [facility], [facility], lab, RT, psych nurse, secondary social studies teacher, nursing care attendant, teacher, air force senior officer, returned case inspector)? Give summary @ -no Was smoking cessation discussed for >3mins.? @ -no Was critical care preformed (if so, how long)? @ -no Were there social determinants of health that impacted care today? How? (Homelessness, low income, unemployed, alcoholism, drug addiction, transportation, low edu. Level, literacy, decrease access to med. care, correction, rehab)? @ -none Was there de-escalation of care discussed even if they declined (Discuss DNR or withdrawal of care, Hospice)? DNR status @ -no What co-morbidities impacted this encounter? (DM, HTN, Smoking, COPD, CAD, Cancer, CVA, ARF, Chemo, Hep., AIDS, mental health diagnosis, sleep apnea, morbid obesity)? @ -none Was patient admitted / discharged? Hospital course, mention meds given and route, prescriptions, significant lab abnormalities, going to OR and other pertinent info. @ - 58 male to the emergency room today for evaluation of cough congestion. Patient will be discharged home his breathing is dramatically improved here in the ER Discharge Undiagnosed new problem with uncertain prognosis? @ -no Drug Therapy requiring intensive monitoring for toxicity (Heparin, Nitro, Insulin, Cardizem)? @ -no Were any procedures done? @ -no Diagnosis/symptom? @ -Upper respiratory infection Acute, or Chronic, or Acute on Chronic? @ -Acute Uncomplicated (without systemic symptoms) or Complicated (systemic symptoms)? @ -Complicated Side effects of treatment? @ -no Exacerbation, Progression, or Severe Exacerbation? @ -exacerbation Poses a threat to life or bodily function? How? (Chest pain, [place], [place], pneumonia, PE, COPD, DKA, ARF, appy, cholecystitis, CVA, Diverticulitis, Homicidal, Suicidal, threat to staff... and all critical care pts) @ -yes Reevaluation #5: 06/18/23 18:13 Differential Dyspnea: Coronary syndrome, arrhythmia, tamponade, asthma, COPD, pulmonary embolism, pneumonia, pneumothorax, pulmonary effusion, anaphylaxis, diabetic ketoacidosis, flailed chest, pulmonary contusion, diaphragmatic rupture, anemia, neuromuscular, this is not meant to be an all-inclusive list. Medical Decision Making - Medical Decision Making 58 male to the emergency room today for evaluation of cough congestion. Patient will be discharged home his breathing is dramatically improved here in the ER - Lab Data Result diagrams: 06/18/23 14:45 06/18/23 14:45 Lab Results 06/18/23 06/18/23 06/18/23 Range/Units 14:45 14:45 14:45 WBC 10.8 H (3.8-10.6) k/uL RBC 5.28 (4.30-5.90) m/uL Hgb 16.1 (13.0-17.5) gm/dL Hct 48.8 (39.0-53.0) % MCV 92.5 (80.0-100.0) fL MCH 30.5 (25.0-35.0) pg MCHC 33.0 (31.0-37.0) g/dL RDW 13.6 (11.5-15.5) % Plt Count 291 (150-450) k/uL MPV 7.9 Neutrophils % 65 % Lymphocytes % 19 % Monocytes % 7 % Eosinophils % 6 % Basophils % 1 % Neutrophils # 7.1 (1.3-7.7) k/uL Lymphocytes # 2.1 (1.0-4.8) k/uL Monocytes # 0.8 (0-1.0) k/uL Eosinophils # 0.6 (0-0.7) k/uL Basophils # 0.1 (0-0.2) k/uL PT 9.7 L (10.0-12.5) sec INR 0.9 (<1.2) APTT 26.4 (22.0-30.0) sec Sodium 138 (137-145) mmol/L Potassium 5.0 (3.5-5.1) mmol/L Chloride 100 (98-107) mmol/L Carbon Dioxide 29 (22-30) mmol/L Anion Gap 9 mmol/L BUN 12 (9-20) mg/dL Creatinine 0.69 (0.66-1.25) mg/dL Est GFR (CKD-EPI)AfAm >90 (>60 ml/min/1.73 sqM) Est GFR (CKD-EPI)NonAf >90 (>60 ml/min/1.73 sqM) Glucose 98 (74-99) mg/dL Calcium 9.6 (8.4-10.2) mg/dL Magnesium 2.2 (1.6-2.3) mg/dL Total Bilirubin 0.5 (0.2-1.3) mg/dL AST 30 (17-59) U/L ALT 24 (4-49) U/L Alkaline Phosphatase 70 (38-126) U/L Troponin I (0.000-0.034) ng/mL NT-Pro-B Natriuret Pep 108 pg/mL Total Protein 7.7 (6.3-8.2) g/dL Albumin 4.6 (3.5-5.0) g/dL 06/18/23 Range/Units 14:45 WBC (3.8-10.6) k/uL RBC (4.30-5.90) m/uL Hgb (13.0-17.5) gm/dL Hct (39.0-53.0) % MCV (80.0-100.0) fL MCH (25.0-35.0) pg MCHC (31.0-37.0) g/dL RDW (11.5-15.5) % Plt Count (150-450) k/uL MPV Neutrophils % % Lymphocytes % % Monocytes % % Eosinophils % % Basophils % % Neutrophils # (1.3-7.7) k/uL Lymphocytes # (1.0-4.8) k/uL Monocytes # (0-1.0) k/uL Eosinophils # (0-0.7) k/uL Basophils # (0-0.2) k/uL PT (10.0-12.5) sec INR (<1.2) APTT (22.0-30.0) sec Sodium (137-145) mmol/L Potassium (3.5-5.1) mmol/L Chloride (98-107) mmol/L Carbon Dioxide (22-30) mmol/L Anion Gap mmol/L BUN (9-20) mg/dL Creatinine (0.66-1.25) mg/dL Est GFR (CKD-EPI)AfAm (>60 ml/min/1.73 sqM) Est GFR (CKD-EPI)NonAf (>60 ml/min/1.73 sqM) Glucose (74-99) mg/dL Calcium (8.4-10.2) mg/dL Magnesium (1.6-2.3) mg/dL Total Bilirubin (0.2-1.3) mg/dL AST (17-59) U/L ALT (4-49) U/L Alkaline Phosphatase (38-126) U/L Troponin I <0.012 (0.000-0.034) ng/mL NT-Pro-B Natriuret Pep pg/mL Total Protein (6.3-8.2) g/dL Albumin (3.5-5.0) g/dL - EKG Data -: EKG Interpreted by Me (EKG is sinus 75 CO 171 QRS 12 QTc 6) - Radiology Data Radiology results: report reviewed (Chest x-rays negative for acute disease), image reviewed Disposition Clinical Impression: COPD exacerbation, Acute bronchitis with COPD, Community acquired pneumonia Disposition: HOME SELF-CARE Condition: Good Instructions (If sedation given, give patient instructions): Acute Bronchitis (ED), Bronchospasm (ED) Prescriptions: predniSONE 50 mg PO DAILY #5 tab Benzonatate [Tessalon Perles] 100 mg PO TID PRN #15 capsule PRN Reason: Cough Azithromycin [Zithromax] 500 mg PO DAILY #5 tab Is patient prescribed a controlled substance at d/c from ED?: No Referrals: Fred Grant DO [Doctor of Osteopathic Medicine] - 1-2 days Time of Disposition: 18:10
--- NOTE | 2023-06-18 15:49 | XR ---
EXAMINATION TYPE: XR chest 1V portable DATE OF EXAM: 06/18/2023 COMPARISON: 07/28/2021 HISTORY: Shortness of breath TECHNIQUE: Single frontal view of the chest is obtained. FINDINGS: There is no focal air space opacity, pleural effusion, or pneumothorax seen. The cardiac silhouette size is within normal limits. The osseous structures are intact. IMPRESSION: No acute process.
[2023-06-18] MEDS ORDERED: AZITHROMYCIN 500 MG in SODIUM CHLORIDE 0.9% 250 ML IVPB STA (16:05)
[2023-06-18 18:18] VITALS: RESP 16; TEMP 98.7
[2023-06-18 19:27] VITALS: BP 104/58; PULSE 70
== END 2023-06-18 19:08 | disposition home or self-care (01) ==
LOC: EC 13:51
DX: J44.1 Chronic obstructive pulmonary disease with (acute) exacerbation (principal); J18.9 Pneumonia, unspecified organism; J20.9 Acute bronchitis, unspecified; F17.200 Nicotine dependence, unspecified, uncomplicated; Z79.899 Other long term (current) drug therapy
CPT/HCPCS: 36415; 94640 ×2; 93005; 83880; 80053; 83735; 84484; 85025; 85610; 85730; 71045; 99285; 96374; 96361; J2930; J0456